=== PATIENT | male | born 1940 | race Caucasian/White ===

== ENCOUNTER 2017-02-27 07:45 | Inpatient (IN) | payer OTHER, SELFPAY ==
[~2017-02-27] VITALS: Ht 170.2 cm; Wt 131.1 kg
[~2017-02-27 07:45] MED LIST: ACETAMINOPHEN-1 EAC1 PO; ACETAMINOPHEN650 M5 PO; ADULT LOW DOSE81 MG PO; AMBIEN 5 MG TABL5 M1 PO; ASPIRIN81 M2; AVELOX 400 MG400 MG PO; AZITHROMYCIN 2250 MG PO; B-100 COMPLEX1 EAC1 PO; B-COMPLEX PLUS1 EACH PO; BENTYL 20 MG TA20 M1 PO; BUMETANIDE 1 MG1 M1 PO; BUMETANIDE0.25 MG/1 PO; BUMEX2 MG PO; CARDIZEM CD240 MG; CARVEDILOL12.5 MG PO; CARVEDILOL6.25 MG PO; CEFDINIR300 MG PO; CENTRUM SILVER1 EAC4 PO; CIPRO500 MG PO; COLACE100 MG PO; COMBIVENT INH; COREG3.125 MG; COUMADIN 10MG T10 M1 PO; COUMADIN 3 MG TA3 M1 PO; COUMADIN 5 MG TA5 M1 PO; COUMADIN7.5 MG PO; DILTIAZEM 24HR240 MG; DOXYCYCLINE 10100 M1 PO; DOXYCYCLINE 10100 MG PO; DUONEB 2.5-0.5 M3 ML INH; FLAGYL500 MG PO; GLUCOTROL10 MG; HYDROCODON-ACE1 EAC7 PO; IMDUR 60 MG TAB60 M1; IMDUR 60 MG TAB60 M1 PO; INSULIN SYRING1 EA57; IRON325 PO; KEFLEX500 MG PO; KLOR-CON 1010 MEQ; LANOXIN 0.250.25 M1; LANOXIN 0.250.25 M1 PO; LANTUS SQ; LANTUS SUBQ; LANTUS100 UNIT/M SUBQ; LASIX 40 MG TAB40 M1 PO; LASIX 40 MG TAB40 M2 PO; LASIX 40 MG TAB40 MG PO; LASIX 80 MG TAB80 MG PO; LEVAQUIN 500 M500 M2 PO; LEVEMIR SUBQ; LIDODERM 5%1 PATC1 TRANSDERM; LISINOPRIL; LISINOPRIL-HCT1 EAC1; LISINOPRIL-HCT1 EAC1 PO; LISINOPRIL-HCT1 EACH PO; LISINOPRIL2.5 MG; LISINOPRIL20 MG; LISINOPRIL20 MG PO; LOMOTIL TABLET1 EACH PO; MINIPRIN81 MG; MUCINEX TA600 MG/TA2 PO; MUCINEX1200 MG PO; NEPHROCAPS SOFT1 CAP PO; NITROGLYCERIN0.4 MG SUBLING; NORCO 5-325 TA1 EACH PO; NOVALOG INSULIN SQ; NOVOLOG100 UNIT/1 SUBQ; OXYCODONE HCL 55 MG PO; PHENERGAN 25 MG25 M1 PO; POTASSIUM20 PO; PRAVACHOL40 MG; PRAVACHOL40 MG PO; PRAVASTATIN SOD40 MG PO; PREDNISONE 10 M10 M1 PO; PREDNISONE 10 M10 MG PO; PRILOSEC40 MG PO; PRINZIDE 20-121 EACH PO; PROBIOTIC1 EAC1 PO; RESTORIL30 MG; RESTORIL30 MG PO; RESTORIL7.5 MG PO; SENOKOT-S1 TA1 PO; SIMVASTATIN40 MG; SPIRIVA INH; SYMBICORT80 MCG/4.1 INH; TEMAZEPAM30 MG PO; TYLENOL325 MG PO; VANCOMYCIN100 MG/M1 PO; VICODIN 5-5001 EACH PO; VITAMIN B-1100 M1 PO; VITAMIN C500 M1 PO; VITAMINC500 PO; VITCB500GO PO; VOLTAREN GEL 1100 GM TOP; ZESTORETIC 20-1 EAC3 PO; ZESTRIL30 MG PO; ZIAGEN 300 MG300 MG; ZOCOR40 MG PO
[2017-02-27 07:49] VITALS: BP 148/80
[2017-02-27 08:34] LABS: HEMATOCRIT 34.7 % (42.0-52.0); HEMOGLOBIN 10.9 gm/dL (14.0-18.0); MCH 25.5 pg (26.0-34.0); MCHC 31.5 g/dL (28.0-37.0); MCV 80.8 fL (80.0-100.0); NUCLEATED RBCS 0 /100WBC; PLATELET COUNT* 159 thou/uL (150-400); RDW-CV 17.1 % (10.5-14.5); WBC 16.1 thou/uL (4.0-11.0)
[2017-02-27 08:39] LABS: ANION GAP 9 mmol/L (7-16); BUN 25 mg/dL (7-18); CALCIUM 8.2 mg/dL (8.5-10.1); CHLORIDE 103 mmol/L (98-107); CO2 28 mmol/L (21-32); GLUCOSE 230 mg/dL (70-99); POTASSIUM 3.6 mmol/L (3.5-5.1); SODIUM 140 mmol/L (136-145)
[2017-02-27 08:44] LABS: APTT 35.2 Seconds (25.0-31.3); INR 1.6; PROTIME 15.6 Seconds (9.20-11.50)
[2017-02-27 08:50] LABS: ALBUMIN 3.7 g/dL (3.4-5.0); ALKALINE PHOSPHATASE 164 U/L (46-116); NT-PRO BRAIN NAT PEPTIDE 655 pg/mL (<300); SGOT 19 U/L (15-37); SGPT 19 U/L (30-65); TOTAL PROTEIN 7.4 g/dL (6.4-8.2); TROPONIN-I LEVEL <0.06 ng/mL (<0.06)
[2017-02-27 08:51] LABS: INFLUENZA A ANTIGEN None Detected (None Detect); INFLUENZA B ANTIGEN None Detected (None Detect)
[2017-02-27 08:54] LABS: ABSOLUTE MONOCYTES 0.2 thou/uL (0.0-1.2)
[2017-02-27 08:55] LABS: PLATELET ESTIMATE ADEQUATE
--- NOTE | 2017-02-27 11:15 | EKG ---
[place] [address] ELECTROCARDIOGRAM REPORT Name: BJORN XIAO Room: [address] ADM IN R.#: [id number] Admission: 02/27/17 Attend Phys: Isidro Patterson, Discharge: Date of : 38 Report #: [id number] THIS REPORT FOR: //name// [facility] ED Test Date: 2017-02-27 Test Time: 07:56:37 Pat Name: BJORN XIAO Department: Room: [facility] Gender: M Packaging Manager: : 1940 Requested By: Nash Antony Order Number: [id number] MD: Gabe Booth Measurements Intervals [place] Rate: 109 P: CT: QRS: -30 QRSD: 100 T: 122 QT: 346 QTc: 467 Interpretive Statements Atrial fibrillation Left axis deviation Abnormal T, consider ischemia, lateral leads Compared to ECG 07/07/2016 23:52:23 rate increased Electronically Signed On 02-27-2017 11:15:50 XEROX MACHINE ASSEMBLER by Gabe Booth [email or web address] <ELECTRONICALLY SIGNED> By: Gabe Booth MD, [facility] 02/27/17 [id number] [id number] Gabe Booth MD, [facility] /EPI
[2017-02-27 11:17] VITALS: BP 123/86
[2017-02-27 11:30] VITALS: BP 124/62; BP 150/68
[2017-02-27] MEDS ORDERED: IRON325 PO (11:39)
[2017-02-27 15:30] VITALS: BP 106/53
--- NOTE | 2017-02-27 18:15 | 2DMMODE ---
[place] [address] 2 D/M-MODE ECHOCARDIOGRAM Name: BJORN XIAO Room: [address] IN .R.#: [id number] Admission: 02/27/17 Attend Phys: Isidro Thomas Discharge: Date of : 38 Date of Service: 02/27/17 1815 Report #: [id number] THIS REPORT FOR: //name// APPROVED REPORT Study performed: 02/27/2017 16:29:25 EXAM: Comprehensive 2D, Doppler, and color-flow Echocardiogram Patient Location: Bedside BSA: 2.35 HR: 94 bpm BP: 133/80 mmHg Other Information Study Quality: Technically Limited Indications Congestive Heart Failure 2D Dimensions LVEF(%): 67.87 (>50%) IVSd: 14.56 (7-11mm) LVOT Diam: 25.21 (18-24mm) LVDd: 57.51 mm PWd: 12.97 (7-11mm) Ascending Ao: 40.85 (22-36mm) LVDs: 35.46 (25-40mm) Aortic Root: 31.73 mm Quick's LVEF: 67.87 % Volumes Left Atrial Volume (Systole) LA ESV Index: 31.60 mL/m2 Aortic Valve AoV Peak Gustavo.: 1.47 m/s AO Peak Gr.: 8.68 mmHg LVOT Max P.45 mmHg AO Mean Gr.: 5.56 mmHg LVOT Mean P.24 mmHg LVOT Max V: 0.78 m/s AO V2 VTI: 27.32 cm LVOT Mean V: 0.52 m/s WEST (VTI): 2.66 cm2 LVOT V1 VTI: 14.54 cm Mitral Valve E/A Ratio: 3.48 MV Decel. Time: 107.74 ms MV E Max Gustavo.: 0.95 m/[place] [address] 2 D/M-MODE ECHOCARDIOGRAM Name: BJORN XIAO Room: [address] IN [facility]#: [id number] Admission: 02/27/17 Attend Phys: Isidro Thomas Discharge: Date of : 38 Date of Service: 02/27/17 1815 Report #: [id number] PHT: 31.24 ms MVA (PHT): 7.04 cm2 TDI E/Lateral E': 6.79 E/Medial E': 10.56 Medial E' Gustavo.: 0.09 m/s Lateral E' Gustavo.: 0.14 m/s Pulmonary Valve PV Peak Gustavo.: 1.00 m/s PV Peak Gr.: 4.02 mmHg Tricuspid Valve RAP Estimate: 20.00 mmHg TR Peak Gr.: 69.89 mmHg RVSP: 89.89 mmHg PA Pressure: 89.89 mmHg Left Ventricle The left ventricle is normal size. There is normal LV segmental wall motion. Mild concentric left ventricular hypertrophy. Left ventricular systolic function is normal. The left ventricular ejection fraction is within the normal range. LVEF is 55-60%. The left ventricular diastolic function is normal. Right Ventricle Right ventricle is mildly dilated. The right ventricular systolic function is normal. Atria Left atrium is mildly dilated. Right atrium is mildly dilated. Aortic Valve Aortic valve is calcified. No aortic regurgitation is present. There is no aortic valvular stenosis. Mitral Valve The mitral valve is normal in structure. Trace mitral regurgitation. No evidence of mitral valve stenosis. Tricuspid Valve The tricuspid valve is normal in structure. Mild tricuspid regurgitation. estimated pa pressure 70 mm Hg Pulmonic Valve Pulmonic valve is not well visualized. [place] [address] 2 D/M-MODE ECHOCARDIOGRAM Name: BJORN XIAO Room: [address]#: [id number] Admission: 02/27/17 Attend Phys: Isidro Thomas Discharge: Date of : 38 Date of Service: 02/27/17 1815 Report #: [id number] [place] Aortic root is mildly dilated. The IVC is dilated. Pericardium There is no pericardial effusion. <Conclusion> Mild concentric left ventricular hypertrophy. LVEF is 55-60%. Right ventricle is mildly dilated. Left atrium is mildly dilated. Right atrium is mildly dilated. Aortic valve is calcified. Mild tricuspid regurgitation. estimated pa pressure 70 mm Hg <ELECTRONICALLY SIGNED> By: Gabe Booth MD, FACC 02/27/171814 14 14 Gabe Booth MD, FACC /INF
[2017-02-27 20:00] VITALS: BP 141/57
[2017-02-28] VITALS: BP 130/69
[2017-02-28 03:57] LABS: HEMATOCRIT 32.1 % (42.0-52.0); HEMOGLOBIN 10.2 gm/dL (14.0-18.0); MCH 25.8 pg (26.0-34.0); MCHC 31.7 g/dL (28.0-37.0); MCV 81.3 fL (80.0-100.0); MPV 9.8 fl. (7.2-11.1); RBC 3.95 mil/uL (4.50-6.00); RDW-CV 17.4 % (10.5-14.5); WBC 12.5 thou/uL (4.0-11.0)
[2017-02-28 04:01] VITALS: BP 90/41
[2017-02-28 04:07] LABS: PROTIME 19.1 Seconds (9.20-11.50)
[2017-02-28 04:18] LABS: ANION GAP 8 mmol/L (7-16); BUN 26 mg/dL (7-18); CALCIUM 8.1 mg/dL (8.5-10.1); CHLORIDE 104 mmol/L (98-107); CO2 30 mmol/L (21-32); GLUCOSE 130 mg/dL (70-99); POTASSIUM 3.7 mmol/L (3.5-5.1); SODIUM 142 mmol/L (136-145); TROPONIN-I LEVEL <0.06 ng/mL (<0.06)
[2017-02-28 08:36] VITALS: BP 106/63
--- NOTE | 2017-02-28 09:12 | CON ---
[address] [address] CONSULTATION Name: BJORN XIAO Room: [address] IN M.R.#: [id number] Admission: 02/27/17 Attend Phys: Isidro Patterson, Discharge: Date of : 38 Report #: [id number] THIS REPORT FOR: //name// CC: Isidro Bailey Arielle DATE OF SERVICE: 02/27/2017 ATTENDING PHYSICIAN: Isidro Patterson M.D. REASON FOR EVALUATION: Pneumonitis, probably multifactorial including possible infectious etiology. HISTORY OF PRESENT ILLNESS: Chart reviewed, patient examined. This is a 77-year-old with known vasculopathy, has cardiomyopathy with history of congestive heart failure, presented with progressive shortness of breath as well as weakness over the course of the last 3 days. He does have some degree of congestion. Denies any fevers or chills. Appetite generally had been okay until recently developed some nausea and some dry heaves. It is notable he is on oxygen utilizing a CPAP at night. He did receive some diuretics and does feel somewhat better. Chest x-ray showed some chronic changes. CT without evidence of pulmonary embolus, does have a right lower lobe infiltrate, was given a dose of azithromycin. ALLERGIES: LISTED TO MORPHINE, DOXYCYCLINE. CURRENT MEDICATIONS: Include ascorbic acid, thiamine, lisinopril, isosorbide mononitrate, potassium chloride, atorvastatin, budesonide, warfarin, diclofenac, sliding scale insulin, oxycodone. PAST MEDICAL HISTORY: As described above, history of stroke, coronary artery disease, congestive heart failure, diabetes mellitus, atrial fibrillation, history of shunt, tonsillectomy, cholecystectomy, bilateral cataracts, bilateral total knee arthroplasties, rotator cuff repair. SOCIAL HISTORY: Nonsmoker, no ethanol. FAMILY HISTORY: Noncontributory. REVIEW OF SYSTEMS: As above. PHYSICAL EXAMINATION: GENERAL: He appears chronically ill, undernourished. He is pleasant and cooperative. He is generally lucid. He is in [id number] distress to respiratory difficulty, does have nasal cannula oxygen in place. VITAL SIGNS: Temperature 98, pulse 90, respirations 17, blood pressure 150/60[place] [address] CONSULTATION Name: BJORN XIAO Room: [address]#: [id number] Admission: 02/27/17 Attend Phys: Isidro Patterson, Discharge: Date of : 38 Report #: [id number] SKIN: Warm, multiple areas contused. There are no true eruptions. HEENT: Neck is supple. LUNGS: Few scattered coarse breath sounds. HEART: Regular. I do not appreciate a murmur. ABDOMEN: Soft, mildly distended. There is no tenderness or peritoneal signs. GENITOURINARY: Deferred. RECTAL: Deferred. LABORATORY DATA: PT 15.6, INR 1.6. D-dimer 0.82. Lactic acid 1.3. Chest x-rays and CT as described above. Influenza antigen was negative. Electrolytes: Sodium 140, potassium 3.6, chloride 103, bicarb of 28, BUN and creatinine 25 and 1.0, glucose of 230. LFTs unremarkable, albumin of 3.7, total protein of 7.4. Estimated GFR of 72. CBC: White count 16.1, H and H 10.9 and 37.4, platelets of 159 and 2% bands, neutrophilia of 15,000. Otherwise, fairly unremarkable. Free T4 1.28. ASSESSMENT: Right-sided pneumonitis and patient likely has a component of congestive heart failure as well. Noted he gained some benefit from diuresis. Continue empiric antimicrobial therapy. I do not think there is any high likelihood that he will be able to produce a sputum at this point. We will check some urinary antigen to see how he does clinically, suspect this should be reversible. <ELECTRONICALLY SIGNED> By: Tyson Bird MD 02/28/17 0912 1258 2325Jomario Bird MD /nt
[2017-02-28 11:45] VITALS: BP 96/55
[2017-02-28 17:33] VITALS: BP 82/48
[2017-02-28 20:00] VITALS: BP 110/60
[2017-03-01] VITALS: BP 94/55
[2017-03-01 04:23] VITALS: BP 103/52
[2017-03-01 12:13] VITALS: BP 95/52
--- NOTE | 2017-03-01 15:00 | CON ---
[address] [address] CONSULTATION Name: BJORN XIAO Room: [address] IN .R.#: [id number] Admission: 02/27/17 Attend Phys: Isidro Patterson, Discharge: Date of : 38 Report #: [id number] THIS REPORT FOR: //name// CC: Isidro Guzmán MD DATE OF SERVICE: 02/27/2017 TYPE OF REPORT: Cardiology consultation. HISTORY OF PRESENT ILLNESS: The patient is a 77-year-old single white male who I was asked to see in the hospital today after he complained of nausea. The patient has a long history of heart disease. He had history of coronary artery stenting at [facility] years ago. He then had a stent placed in his circumflex and LAD at [facility] [place] years ago. He actually had a cardiac catheterization here at [facility] in [address] Gill. No ventriculogram was performed. The stent in the LAD was widely patent. The stent in the circumflex was occluded. There was no significant disease in the right coronary artery. It is recommended he be treated medically. His last echocardiogram done in April of this year showed left ventricular hypertrophy, ejection fraction 45%, dilated atria, the right ventricle is dilated, aortic sclerosis, mild mitral and tricuspid insufficiency, pulmonary hypertension and pulmonary artery pressure of 60 mmHg. The patient is not very active because of his age and large size. He is 5 feet 5 inches and weighs 250 pounds. He goes to the pain clinic for chronic back pain and received intermittent epidurals. He was doing well until last night. He complained of nausea and not feeling well. He was up most of the night. He felt weak. He woke up this morning again complained of nausea. He does have abdominal distention but no vomiting, blood in the stool. He has had no fever. He denied any recent chest pain, increased shortness of breath, palpitations, syncope. He does have chronic atrial fibrillation, but apparently has never been cardioverted. He has been chronically anticoagulated. He called the ambulance this morning because of nausea and was admitted for further evaluation and treatment. PAST MEDICAL HISTORY: Significant for appendectomy, hemicolectomy for diverticular bleed, hernia repair, bilateral knee surgery, rotator cuff surgery, cholecystectomy, hypertension, diabetes and hyperlipidemia. MEDICATIONS: Consists of Bumex for chronic edema, insulin, Imdur, Prinzide, oxycodone, pravastatin, Restoril and warfarin. ALLERGIES: He has intolerance to MORPHINE. FAMILY HISTORY: Mother [place] [address] CONSULTATION Name: BJORN XIAO Room: [address] IN [facility].#: [id number] Admission: 02/27/17 Attend Phys: Isidro Patterson, Discharge: Date of : 38 Report #: [id number] SOCIAL HISTORY: He is , lives in [place], [place]. He is a retired grounds maintenance supervisor. No smoking or alcohol abuse. REVIEW OF SYSTEMS: He apparently had a stroke in the past affecting his left eye. He has sleep apnea. He has a history of asthma. No history of peptic ulcer disease, liver disease, kidney disease, had a skin cancer in the past. No chronic skin condition. PHYSICAL EXAMINATION: GENERAL: Revealed a large, elderly male, lying in bed. He appeared in no acute distress. VITAL SIGNS: He had a blood pressure of 140/80, pulse 90 and he is afebrile. HEENT: He is anicteric. Conjunctivae pink. Mucous membranes moist. NECK: Veins difficult to assess due to his obesity. CHEST: There are rales in both lung corona. CARDIAC: Irregular rhythm. ABDOMEN: He had a very large, protuberant abdominal apron. It is soft. EXTREMITIES: Had 1+ edema. Dorsalis pedis pulse cannot be palpated. SKIN: Cool and dry. NEUROLOGICAL: Nonfocal. RADIOLOGICAL DATA: His ECG showed atrial fibrillation, leftward axis and nonspecific ST-segment changes. Workup in the Emergency Room today, he had portable chest x-ray that showed cardiomegaly, no infiltrates and no pulmonary edema. CT scan of the chest using the PE protocol showed no pulmonary embolus, no aortic dissection, cardiomegaly, coronary calcifications and right lower lobe infiltrate was noted. CT scan of the head in 2016 without contrast showed only chronic changes. LABORATORY DATA: Sodium 140, potassium 3.6 and glucose 191. Alkaline phosphatase is 164. Troponin 0.06. His BNP 655. INR is 1.6. White blood cell count 16.1 and hemoglobin 10.9. IMPRESSION AND RECOMMENDATIONS: 1. Permanent atrial fibrillation. The rate is controlled despite the fact that he is on no medications and slow atrioventricular node conduction. I suspect he has chronic conduction system disease. I would continue anticoagulation, maintain an INR of 2-3. 2. Coronary artery disease with previous stenting. No recent angina. Since the patient on warfarin, I would not recommend aspirin. 3. Hypertension. The patient is on an angiotensin-converting enzyme inhibitor. 4. Diabetes. 5. Hyperlipidemia. The patient is on a statin drug. 6. Obesity. 7. Sleep apnea. 8. Nausea, reason unclear. [address] [place] [id number] CONSULTATION Name: BJORN XIAO Room: [address] IN [facility].#: [id number] Admission: 02/27/17 Attend Phys: Isidro Patterson, Discharge: Date of : 38 Report #: [id number] 9. Anemia. 10. History of stroke. <ELECTRONICALLY SIGNED> By: Gabe Booth MD, FACC 03/01/17 1500 1402 2053Dfilemon Booth MD, FACC /nt
[2017-03-01 15:45] VITALS: BP 107/62
[2017-03-01 16:11] LABS: PROTIME 19.1 Seconds (9.20-11.50)
[2017-03-01 20:00] VITALS: BP 115/69
[2017-03-02 00:34] VITALS: BP 124/66
[2017-03-02 04:04] VITALS: BP 132/68
[2017-03-02] MEDS ORDERED: AZITHROMYCIN 2250 MG PO (09:25)
[2017-03-02] MEDS ORDERED: CEFDINIR300 MG PO (09:25)
[2017-03-02] MEDS ORDERED: VANCOMYCIN PO (09:33)
[2017-03-02 12:17] VITALS: BP 132/68
[2017-03-03 02:05] LABS: ADENOVIRUS Negative (Negative); INFLUENZA A Negative (Negative); INFLUENZA B Negative (Negative); METAPNEUMOVIRUS Negative (Negative); PARAINFLUENZA 1 Negative (Negative); PARAINFLUENZA 2 Negative (Negative); PARAINFLUENZA 3 Negative (Negative); RHINOVIRUS Negative (Negative); RSV A Negative (Negative); RSV B Negative (Negative)
== END 2017-03-02 13:30 | disposition home or self-care (01) | DRG 193 ==
LOC: M.ERS 07:45 → M.TBA-ER 09:10 → M.2W 09:10
PROVIDERS: Emergency Medicine Emergency Medical Services; ADMIT Family Medicine
DX: J15.9 Unspecified bacterial pneumonia (principal); J96.01 Acute respiratory failure with hypoxia; R65.11 Systemic inflammatory response syndrome (SIRS) of non-infectious origin with acute organ dysfunction; I50.33 Acute on chronic diastolic (congestive) heart failure; Z68.42 Body mass index [BMI] 45.0-49.9, adult; I11.0 Hypertensive heart disease with heart failure; Z96.653 Presence of artificial knee joint, bilateral; E11.9 Type 2 diabetes mellitus without complications; E78.5 Hyperlipidemia, unspecified; I48.2 Chronic atrial fibrillation; E66.9 Obesity, unspecified; I25.10 Atherosclerotic heart disease of native coronary artery without angina pectoris; D64.9 Anemia, unspecified; G89.29 Other chronic pain; D72.829 Elevated white blood cell count, unspecified; Z86.73 Personal history of transient ischemic attack (TIA), and cerebral infarction without residual deficits; Z85.89 Personal history of malignant neoplasm of other organs and systems; Z95.5 Presence of coronary angioplasty implant and graft; Z79.899 Other long term (current) drug therapy; Z82.49 Family history of ischemic heart disease and other diseases of the circulatory system; Z90.49 Acquired absence of other specified parts of digestive tract; Z98.42 Cataract extraction status, left eye; Z98.41 Cataract extraction status, right eye; Z98.52 Vasectomy status; Z88.1 Allergy status to other antibiotic agents; Z88.5 Allergy status to narcotic agent; Z87.891 Personal history of nicotine dependence

== ENCOUNTER 2017-04-09 19:50 | Emergency (ER) | payer OTHER, SELFPAY ==
[~2017-04-09] VITALS: Ht 177.8 cm; Wt 113.4 kg
[~2017-04-09 19:50] MED LIST changes: +VANCOMYCIN PO
[2017-04-09 20:24] VITALS: BP 143/90
== END 2017-04-09 20:25 | disposition home or self-care (01) ==
LOC: M.ERS 19:50
DX: S51.812A Laceration without foreign body of left forearm, initial encounter (principal); I48.91 Unspecified atrial fibrillation; E11.9 Type 2 diabetes mellitus without complications; I50.9 Heart failure, unspecified; Z88.1 Allergy status to other antibiotic agents; Z88.5 Allergy status to narcotic agent; Z87.891 Personal history of nicotine dependence; Z79.4 Long term (current) use of insulin; Z86.73 Personal history of transient ischemic attack (TIA), and cerebral infarction without residual deficits; W22.8XXA Striking against or struck by other objects, initial encounter; Y93.89 Activity, other specified; Y92.89 Other specified places as the place of occurrence of the external cause; Y99.8 Other external cause status

== ENCOUNTER 2017-04-11 01:49 | Inpatient (IN) | payer OTHER ==
[~2017-04-11] VITALS: Ht 177.8 cm; Wt 129.3 kg
[2017-04-11 01:53] VITALS: BP 131/72
[2017-04-11 02:19] LABS: ABSOLUTE BASOPHILS 0.1 thou/uL (0.0-0.2); ABSOLUTE EOSINOPHILS 0.1 thou/uL (0.0-0.7); ABSOLUTE LYMPHOCYTES 1.1 thou/uL (0.8-5.3); ABSOLUTE MONOCYTES 0.6 thou/uL (0.0-1.2); ABSOLUTE NEUTROPHILS 3.6 thou/uL (1.6-8.1); EOSINOPHILS 2.2 %; HEMATOCRIT 33.8 % (42.0-52.0); HEMOGLOBIN 10.9 gm/dL (14.0-18.0); LYMPHOCYTES 20.5 %; MCH 25.9 pg (26.0-34.0); MCHC 32.2 g/dL (28.0-37.0); MCV 80.5 fL (80.0-100.0); MONOCYTES 11.1 %; MPV 10.2 fl. (7.2-11.1); NUCLEATED RBCS 0 /100WBC; PLATELET COUNT* 128 thou/uL (150-400); POLYS 65.2 %; RDW-CV 19.6 % (10.5-14.5); WBC 5.5 thou/uL (4.0-11.0)
--- NOTE | 2017-04-11 02:38 | NUR ---
WHILE ASKING PT ABOUT HOME MEDICATIONS, HE STATED HE HAS BEEN TAKING 4.5 PILLS OF HIS 3MG COUMADIN PILLS.
[2017-04-11 02:40] LABS: PROTIME 98.3 Seconds (9.20-11.50)
[2017-04-11 02:43] LABS: INR 10.5
[2017-04-11 02:52] LABS: POTASSIUM 3.6 mmol/L (3.5-5.1); SODIUM 141 mmol/L (136-145)
[2017-04-11 03:01] LABS: ANION GAP 7 mmol/L (7-16); BUN 21 mg/dL (7-18); CALCIUM 8.2 mg/dL (8.5-10.1); CHLORIDE 105 mmol/L (98-107); CO2 29 mmol/L (21-32); CREATININE 0.9 mg/dL (0.6-1.3); GLUCOSE 346 mg/dL (70-99)
[2017-04-11 03:08] LABS: ALBUMIN 3.2 g/dL (3.4-5.0); ALKALINE PHOSPHATASE 168 U/L (46-116); SGOT 19 U/L (15-37); SGPT 20 U/L (30-65); TOTAL BILIRUBIN 0.4 mg/dL (<0.1-1.0); TOTAL PROTEIN 7.1 g/dL (6.4-8.2); TROPONIN-I LEVEL <0.06 ng/mL (<0.06)
[2017-04-11 05:00] VITALS: BP 113/66; BP 123/74
[2017-04-11 08:30] VITALS: BP 106/54
[2017-04-11 11:07] LABS: PROTIME 91.8 Seconds (9.20-11.50)
[2017-04-11 11:09] LABS: INR 9.8
--- NOTE | 2017-04-11 11:42 | NUR ---
CM ASSESSMENT: Pt is A&O. Resides at home alone. Reports being independent with ADLs. Pt has a [employer] nurse that comes to see him weekly and states that through his nurse, she has set up for him to have a HH aid, Pt states that he has a hard time getting in and out of his tub. No hx of HH and Pt does not know the name of the agency that will provide his HH aid. Pt wears a cpap at night, no o2 through out the day. Pt's granddtr lives 2 doors down and assist Pt as needed. Pt anticipates discharging to home tomorrow. Following for dc needs.
[2017-04-11 13:30] VITALS: BP 95/61
[2017-04-11 16:00] VITALS: BP 112/61
--- NOTE | 2017-04-11 16:37 | EKG ---
[place] [address] ELECTROCARDIOGRAM REPORT Name: BJORN XIAO Room: [address] ADM IN R.#: [id number] Admission: 04/11/17 Attend Phys: Mabel Dixon MD Discharge: Date of : 38 Report #: [id number] THIS REPORT FOR: //name// [facility] ED Test Date: 2017-04-11 Test Time: 04:23:23 Pat Name: BJORN XIAO Department: Room: [facility] Gender: M Construction Equipment Technician: ELISE Ortega : 1940 Requested By: Emerald Joe Order Number: [id number] MD: Gopal Melendrez Measurements Intervals [place] Rate: 122 P: 195 ID: [id number] QRS: -24 QRSD: 145 T: 96 QT: 397 QTc: 566 Interpretive Statements Ventricular-paced complexes No further rhythm analysis attempted due to paced rhythm Nonspecific intraventricular conduction delay Borderline ST depression, lateral leads Baseline wander in lead(s) III Compared to ECG 02/27/2017 07:56:37 Intraventricular conduction delay now present ST (T wave) deviation now present Atrial fibrillation no longer present Left-axis deviation no longer present T-wave abnormality no longer present Possible ischemia no longer present Electronically Signed On 04-11-2017 16:37:27 SENIOR ATTORNEY by Gopal Melendrez [email or web address] <ELECTRONICALLY SIGNED> By: Josué Melendrez MD, [facility] 04/11/17 1637 2 0423 Josué Melendrez MD, [facility] /EPI
[2017-04-11 19:50] VITALS: BP 104/67
--- NOTE | 2017-04-11 19:54 | NUR ---
ASSUMED PT CARE AT 0730, FULL ASSESMENT DONE CHARTED. PT A/ O X4, DENIES PAIN, VSS, AFIB ON THE MONITOR. PT HAS WOUND TO LEFT FA THAT IS BLEEDING, DRESSING CHANGED 3X THIS SHIFT, DRESSING SATURATED EACH TIME. PTS BP LOW THIS AFTERNOON, ASYMPTOMATIC, PT RESTING IN RECLINER, CALLS OUT WITH NEEDS APPROPRIATLY. REPORT GIVEN TO SAMMIE MONK
[2017-04-12] VITALS: BP 95/47
--- NOTE | 2017-04-12 02:20 | NUR ---
ASSUMED CARE OF PT AT 1900. PT IS ALERT AND ORIENTED. VSS. PERRLA. NO COMPLAINTS OF PAIN. UP WITH STAND BY ASSIST. PT IS IN A FIB ON THE TELEMETRY. PT IS RESTING COMFORTABLY IN BED. RESPIRATIONS ARE EVEN AND NONLABORED. WILL CONTINUE TO MONITOR PT.
[2017-04-12 04:00] VITALS: BP 95/48
[2017-04-12 05:38] LABS: HEMATOCRIT 32.3 % (42.0-52.0); HEMOGLOBIN 10.4 gm/dL (14.0-18.0); MCH 25.8 pg (26.0-34.0); MCHC 32.3 g/dL (28.0-37.0); MPV 9.8 fl. (7.2-11.1); RBC 4.04 mil/uL (4.50-6.00); RDW-CV 19.6 % (10.5-14.5)
[2017-04-12 05:46] LABS: PROTIME 22.7 Seconds (9.20-11.50)
[2017-04-12 05:49] LABS: INR 2.4
[2017-04-12 06:14] LABS: CALCIUM 8.4 mg/dL (8.5-10.1); CREATININE 0.8 mg/dL (0.6-1.3); POTASSIUM 3.7 mmol/L (3.5-5.1)
[2017-04-12 08:30] VITALS: BP 111/73
--- NOTE | 2017-04-12 10:27 | NUR ---
ASSUMED PT CARE AT 0730, FULL ASSESMENT DONE CHARTED, PT A/O X4, [place], DENIES PAIN, HOPING TO GO HOME TODAY. INR 2.4 TODAY, BLEEDING TO LEFT ARM LACERATION STOPPED, PICTURE OF WOUND TAKEN. FALL PRECATUIONS REMIAN IN PLACE. CALL LIGHT IN REACH, PT USES IT APPROPRIALY. WILL CONTINUE WITH PLAN OF CARE.
[2017-04-12 12:00] VITALS: BP 123/68
[2017-04-12] MEDS ORDERED: COUMADIN 2 MG TA2 M1 PO (12:59)
[2017-04-12 13:30] VITALS: BP 123/68
--- NOTE | 2017-04-12 15:07 | NUR ---
RECIEVED DISCHARGE ORDERS, PT EDUCATED ON NEW COUMADIN DOSE, PT VERBALIZED UNDERSTANDING. PTS BELONGINS AND DISCHARGE PAPERWORK WITH PT. PT LEFT UNIT AT APPROX 1445
== END 2017-04-12 14:45 | disposition home or self-care (01) | DRG 813 ==
LOC: M.ERS 01:49 → M.TBA-ER 03:36 → M.2W 04:59
PROVIDERS: Emergency Medicine; ADMIT Internal Medicine
DX: D68.32 Hemorrhagic disorder due to extrinsic circulating anticoagulants (principal); Z68.41 Body mass index [BMI] 40.0-44.9, adult; E66.01 Morbid (severe) obesity due to excess calories; S40.812A Abrasion of left upper arm, initial encounter; Z96.653 Presence of artificial knee joint, bilateral; I48.91 Unspecified atrial fibrillation; I50.9 Heart failure, unspecified; E11.9 Type 2 diabetes mellitus without complications; T45.515A Adverse effect of anticoagulants, initial encounter; Z60.2 Problems related to living alone; Z88.6 Allergy status to analgesic agent; Z88.8 Allergy status to other drugs, medicaments and biological substances; Z90.49 Acquired absence of other specified parts of digestive tract; Z86.73 Personal history of transient ischemic attack (TIA), and cerebral infarction without residual deficits; Z98.42 Cataract extraction status, left eye; Z98.41 Cataract extraction status, right eye; Z98.52 Vasectomy status; Z95.5 Presence of coronary angioplasty implant and graft; Z87.891 Personal history of nicotine dependence; Y92.89 Other specified places as the place of occurrence of the external cause

== ENCOUNTER → 2017-09-29 | Outpatient (CLI) | payer OTHER ==
[~2017-09-29] MED LIST changes: +COUMADIN 2 MG TA2 M1 PO
== END ==
LOC: M.RAD 11:57
DX: M25.562 Pain in left knee (principal); R60.0 Localized edema; E11.9 Type 2 diabetes mellitus without complications; I48.91 Unspecified atrial fibrillation; I25.10 Atherosclerotic heart disease of native coronary artery without angina pectoris; I50.9 Heart failure, unspecified; Z96.652 Presence of left artificial knee joint